=== PATIENT | female | born 1955 | race Caucasian/White ===

== ENCOUNTER 2023-05-22 09:03 | Outpatient (AMB) | payer MEDICARE, SELFPAY ==
[2023-05-22 10:17] VITALS: BP 136/72; PULSE 81; TEMP 37.1; O2SAT 97; BMI 33.1
--- NOTE | 2023-05-22 10:17 | AM.OFFWIN_ITS ---
Intake Vital Signs 05/22/23 10:17 Height 5 ft 6 in Weight 205 lb 2 oz BMI 33.1 BP 136/72 Blood Pressure Location Rt brachial Position Sitting Pulse 81 Pulse Source Pulse Oximeter Temp 98.7 F Temp Source Oral Pulse Oximetry (%) 97 Oxygen Delivery Method Room Air Intake Visit Reasons: [employer]/left eye irritation [phone] Intake Note: pt is here for c/o possible left eye pink eye Patient Tobacco Use Status: Never used Tobacco Allergies No Known Allergies Allergy (Verified 05/22/23 10:52) Medication List - Last Reconciled 05/22/23 by Wayne Perdomo MD atorvastatin 10 mg PO DAILY blood sugar diagnostic (FreeStyle Lite Strips) As directed estradiol 0.01%(0.1mg/gram) vaginal lancets (FreeStyle Lancets) As directed Do you need a note to return to daycare/school/sports/work: Yes HPI [employer]/left eye irritation [phone] HPI Details 68-year-old female presents to the [facility] for a sick visit. Patient is complaining of pain and redness in the left eye. Increased tearing. No fevers or chills. PFSH Social History Patient Tobacco Use Status: Never used Tobacco Physical Exam Vital Signs: Last Vital Signs Temp 98.7 F 05/22/23 10:17 Pulse 81 05/22/23 10:17 BP 136/72 05/22/23 10:17 Pulse Ox 97 05/22/23 10:17 Oxygen Delivery Method Room Air 05/22/23 10:17 BMI result Body Mass Index 33.1 Eyes Other: Left eye: Bulbar conjunctiva is congested. Corneas clear. Anterior chamber is clear. Assessment & Plan Assessment & Plan (1) Conjunctivitis: Code(s): H10.9 - Unspecified conjunctivitis Plan: Erythromycin ophthalmic ointment applied to the eye thrice a day. Coding Level of Care Code Est Pt Level 3 (70389) Diagnoses Conjunctivitis H10.9
== END 2023-05-22 10:56 | disposition home or self-care (01) ==
PROVIDERS: Visit Provider Internal Medicine
DX: H10.9 Unspecified conjunctivitis (principal)
CPT/HCPCS: 99213